=== PATIENT | female | born 1985 | race Caucasian/White ===

== ENCOUNTER 2017-07-10 15:42 | Emergency (ER) | payer BC ==
[~2017-07-10] VITALS: Ht 170.2 cm; Wt 90.7 kg
[~2017-07-10 15:42] MED LIST: APAP/BUTALBITAL1 TA1 PO; AUGMENTIN1 TA2 PO; CIPRO 500MG TA500 MG PO; HYDROCODONE-APA1 TA1 PO; HYDROCODONE1 TABLE1 PO; HYDROCODONE1 TABLET PO; NORCO 325 MG-51 TAB PO; PHENERGAN 25MG.25 M1 PO; PROBIOTIC & ACI1 CAP PO; ZYRTEC10 M2 PO
[2017-07-10] MEDS ORDERED: PROAIR HFA0.09 MG/AC IH (16:41)
[2017-07-10] MEDS ORDERED: FLONASE 50 MCG16 GM (16:41)
[2017-07-10] MEDS ORDERED: TESSALON PERLE100 M1 PO (16:41)
[2017-07-10] MEDS ORDERED: MUCINEX1200 MG PO (16:41)
[2017-07-10] MEDS ORDERED: LEVAQUIN 750 M750 MG PO (16:41)
--- NOTE | 2017-07-10 16:42 | [facility] Report ---
History of Present Issue Date/Time Seen by Provider 07/10/17 7995 Visit Reason Pt arrived:Walked Presenting Problem:COUGH, CONGESTION X2 WEEKS, CURRENTLY ON AMOXIL, NOT FEELING ANY BETTER Location if Accident: Onset of symptoms date/time:/ or onset unknown for:MEDICAL HX UNKNOWN Have you (or family members/close friends) recently traveled outside the [place]? N If Yes, where/when: Have you had exposure to infectious disease within the past month? TB? Other? Specify: Patient state that she was seen in [place] last week for same complaint of cough, congestions and sinus paina and pressure and placed on Augmentin State that she has taken all but one dose of the medication and she still is not feeling any better and actually thinks her sinuses may be worse. States that came in today to see if maybe her antibiotics may be changed and get a shot to try to feel better ALLERGIES Coded Allergies: NO KNOWN ALLERGIES (07/10/17) Home Medications Active Scripts APAP 325MG/CAFF 40MG/BUTA 50MG (Pbamgk-Flolhfgc-Bydj 50-325-40) 1 TAB PO Q6HP PRN headache #10 TAB Prov: 12/10/14 Promethazine Hydrochloride (Phenergan 25MG Tab) 25 MG PO Q6HP PRN N/V #12 TAB Prov: 12/10/14 AMOXICILLIN/POTASSIUM CLAV (Amox Tr-K Clv 875-125 MG Tab) 1 TAB PO BID #20 TAB Prov: 12/10/14 HYDROCODONE/ACETAMINOPHEN ([place] 5-325 Tablet) 1 TAB PO Q6HP PRN pain #10 TAB Prov: 04/16/14 Reported Medications MISCELLANEOUS (UNKNOWN MEDICATION) 1 CAP PO DAILY History Medical History General Angina: No MT: No Hypertension? No Hyperlipidemia? No CHF? No COPD? No Asthma? No Hernia? No CVA? No Seizures? No Diabetes? No UTI? No Stones? No GB Disease: Yes Nephritic Syndrome? No Asplenia? No Hepatitis? No Sickle Cell Disease? No Cataracts? No Glaucoma? No MRSA? No TB? No Cancer? No Immunization HX DT/Tetanus > 10 Years Ago Flu Refused Pneumonia Never Had Surgical Hx Previous Surgery?Y EGD COLONOSCOPY WISDOM TEETH LAP CHOLEY Family History Family HX Diabetes Yes CAD No Hypertension Yes Hyperlipidemia No Cancer Yes TB No Social History Smoking Hx Smoker: Current Every Day Smoker Tobacco: Yes Type Cigarettes Packs/day < 1 Pack Alcohol Alcohol: No Review of Systems All Other Systems Reviewed and Negative ENT nose congestion, throat pain. Respiratory cough, denies shortness of breath, denies wheezing Physical Exam Vital Signs Vital Signs Date Time Temp Pulse Resp B/P Pulse O2 O2 Flow FiO2 Ox Delivery Rate 07/10 1555 97.8 76 18 139/92 99 General Appearance normal appearance, WD/WN, no apparent distress Ear, Nose, Throat sinus pain/drainage, nasal congestion, Throat red, irritated tenderness noted maxillary and frontal sinuses Respiratory Status Yes: trachea midline, chest symmetrical, non tender chest. No: respiratory distress. Cardiovascular normal exam, regular rate/rhythm, no peripheral edema Neurologic alert, normal exam, oriented x 3 Medical Decision Making LABS/Meds/Orders Pt receiving controlled substance in ED? No Results/Orders Current Medication Orders Sig/Lorin Start time Last Medication Dose Route Stop Time Status Admin Methylprednisolone 125 MG ONCE ONE 07/10 1645 AC Sodium Succinate IM 07/10 1646 Departure Departure Time of Disposition 1635 Disposition DC Home or Self Care(routine) Clinical Impression Primary Impression: Upper respiratory infection Qualifiers: URI type: unspecified URI Qualified Code: J06.9 - Acute upper respiratory infection, unspecified Secondary Impressions: Sinusitis Qualifiers: Sinusitis location: unspecified location Chronicity: acute Recurrence: not specified as recurrent Qualified Code: J01.90 - Acute sinusitis, unspecified Condition STABLE Patient Instructions Cough, DI for Sinusitis, Sinus Headache, Sinusitis, Sore Throat Additional Instructions * Monitor Temp. Tylenol and/or Ibuprofen as needed. ER if fever is no less than 101 despite alternating Tylenol and Ibuprofen * Encourage fluids, water, Gatorade, powerade, pedialyte if infant/toddler/or child * Warm salt water gargles for throat irritation *Warm fluids *Sore throat lozenges *Sleep elevated *humidifier or vaporizer Lots of rest Increase fluids, water, Gatorade, powerade Follow up IMMEDIATELY for new or worsening of symptoms OR no noticeable improvement over the next 48-72 hours. 911 immediately for any life threatening symptoms such as chest pain or difficulty breathing If you began to have pain in the back of your ankle stop taking medication immediately and go straight to your family doctor or ER Stop taking Augmentin and start taking Levaquin today Discharge Counseling Counseled pt/family regarding diagnosis, medications/RX, home care, follow up needs Prescriptions Current Visit Scripts Albuterol Sulfate (Proair Hfa) 2 PUFFS IH QID #1 INH Levofloxacin (Levaquin 750mg) 750 MG PO DAILY #5 TAB Guaifenesin (Mucinex) 1,200 MG PO BID #20 TER Fluticasone Propionate (Flonase 50 Mcg Nasal [place]) 2 SPRAY NA DAILY #1 BOT Benzonatate (Tessalon Perle) 100 MG PO TID #15 SGL at 2064
[2017-07-10 16:54] VITALS: BP 139/92
== END 2017-07-10 16:58 | disposition home or self-care (01) ==
LOC: UTC 15:42
DX: J06.9 Acute upper respiratory infection, unspecified (principal); J01.90 Acute sinusitis, unspecified; F17.210 Nicotine dependence, cigarettes, uncomplicated